=== PATIENT | male | born 1995 | race Caucasian/White ===

== ENCOUNTER 2018-06-15 09:34 | Emergency (ER) | payer OTHER ==
[2018-06-15] MEDS ORDERED: ONDANSETRON 4 MG/2 ML VIAL ONE ×2 (10:10→10:55)
[2018-06-15] MEDS ORDERED: NA CHLORIDE 0.9% 500 ML ONE (10:10)
[2018-06-15] MEDS ORDERED: MORPHINE 4 MG/ML SYR ONE (10:10)
[2018-06-15 10:25] LABS: Absolute Lymphocytes (CBC) 2.9 K/uL (0.7-4.9); Absolute Monocytes 0.5 K/uL (0.1-1.3); Absolute Neutrophil 4.2 K/uL (1.8-8.0); Basophils % 1.1 % (0-1.3); Eosinophils % 4.4 % (0-4.4); Hematocrit 45.8 % (39.6-49.0); Lymphocytes % 35.4 % (15.3-44.8); MCH 29.8 pg (27.0-35.0); MCV 84.5 fL (80-100); MPV 7.5 fL (7.6-11.3); Monocytes % 6.4 % (3.3-12.3); RBC Red Blood Cell Count 5.42 M/uL (4.33-5.43)
[2018-06-15 10:39] LABS: Potassium 3.5 mmol/L (3.5-5.1)
--- NOTE | 2018-06-15 10:49 | RAD REPORT ---
EXAM DESCRIPTION: CT - Stone Protocol - 06/15/2018 10:21 am CLINICAL HISTORY: Abdominal pain. Left flank pain COMPARISON: None. TECHNIQUE: Computed axial tomography of the abdomen pelvis was obtained without oral or IV contrast. Lack of IV and oral contrast limits evaluation of solid organs, bowel, and vessels. Coronal reformat andrzej images were obtained and reviewed. All CT scans are performed using dose optimization technique as appropriate and may include automated exposure control or mA/KV adjustment according to patient size. FINDINGS: 2 tiny nonobstructing right renal calculi are present. A left renal calculus is not seen. Mild left hydronephrosis is present. A 2 millimeter calculus is present within the distal left ureter . The liver, spleen, pancreas and adrenals appear grossly normal There is no evidence of diverticulitis. The appendix appears normal IMPRESSION: 2 millimeter calculus distal left ureter resulting in mild left hydronephrosis
[2018-06-15] MEDS ORDERED: KETOROLAC 30 MG/ML INJ ONE (11:01)
--- NOTE | 2018-06-15 11:50 | EDPHYS ---
Physician Documentation [facility] Name: Toño Vaughan Age: 22 yrs Sex: Male : 1995 Arrival Date: 06/15/2018 Time: 09:37 Bed 16 Private MD: ED Physician Eliseo Saywer HPI: 06/15 11:44 This 22 yrs old Male presents to ER via Ambulatory with complaints of kdr Abdominal Pain. 11:45 The patient presents with abdominal pain in the left lower quadrant. Onset: The kdr symptoms/episode began/occurred this morning. The symptoms radiate to the left flank, left testicle. Associated signs and symptoms: Pertinent positives: nausea and vomiting, testicular pain, Pertinent negatives: diarrhea, dysuria, fever, headache, hematuria, palpitations, shortness of breath. The symptoms are described as achy, constant, steady. Modifying factors: The symptoms are alleviated by nothing, the symptoms are aggravated by movement. Severity of pain: At its worst the pain was severe incapacitating just prior to arrival, in the emergency department the pain is unchanged. The patient has experienced a previous episode, last week, but today's symptoms are worse. The patient has not recently seen a physician. Historical: - Allergies: 09:48 IV contrast; sg - PMHx: 09:48 None; sg - PSHx: 09:48 Mass removed from thyroid; sg - Immunization history:: Adult Immunizations up to date. - Social history:: Smoking status: Patient/guardian denies using tobacco. - Ebola Screening: : Patient negative for fever greater than or equal to 101.5 degrees Fahrenheit, and additional compatible Ebola Virus Disease symptoms Patient denies exposure to infectious person Patient denies travel to an Ebola-affected area in the 21 days before illness onset No symptoms or risks identified at this time. ROS: 11:45 Constitutional: Negative for fever, chills, and weight loss, Eyes: Negative for injury, kdr pain, redness, and discharge, Neck: Negative for injury, pain, and swelling, Cardiovascular: Negative for chest pain, palpitations, and edema, Respiratory: Negative for shortness of breath, cough, wheezing, and pleuritic chest pain, Back: Negative for injury and pain, : Negative for injury, bleeding, discharge, and swelling, MS/Extremity: Negative for injury and deformity, Skin: Negative for injury, rash, and discoloration, Neuro: Negative for headache, weakness, numbness, tingling, and seizure activity. Psych: Negative for depression, anxiety, suicide ideation, homicidal ideation, and hallucinations, Allergy/Immunology: Negative for hives, rash, and allergies, Endocrine: Negative for neck swelling, polydipsia, polyuria, polyphagia, and marked weight changes, Hematologic/Lymphatic: Negative for swollen nodes, abnormal bleeding, and unusual bruising. 11:45 Abdomen/GI: Positive for abdominal pain, Negative for diarrhea, constipation, abdominal cramps, abdominal distension. Exam: 11:45 Constitutional: This is a well developed, well nourished patient who is awake, alert, kdr and in no acute distress. Head/Face: Normocephalic, atraumatic. Eyes: Pupils equal round and reactive to light, extra-ocular motions intact. Lids and lashes normal. Conjunctiva and sclera are non-icteric and not injected. Cornea within normal limits. Periorbital areas with no swelling, redness, or edema. Neck: Trachea midline, no thyromegaly or masses palpated, and no cervical lymphadenopathy. Supple, full range of motion without nuchal rigidity, or vertebral point tenderness. No Meningismus. Chest/axilla: Normal chest wall appearance and motion. Nontender with no deformity. No lesions are appreciated. Cardiovascular: Regular rate and rhythm with a normal S1 and S2. No gallops, murmurs, or rubs. Normal PMI, no JVD. No pulse deficits. Respiratory: Lungs have equal breath sounds bilaterally, clear to auscultation and percussion. No rales, rhonchi or wheezes noted. No increased work of breathing, no retractions or nasal flaring. Back: No spinal tenderness. No costovertebral tenderness. Full range of motion. Skin: Warm, dry with normal turgor. Normal color with no rashes, no lesions, and no evidence of cellulitis. MS/ Extremity: Pulses equal, no cyanosis. Neurovascular intact. Full, normal range of motion. Neuro: Awake and alert, GCS 15, oriented to person, place, time, and situation. Cranial nerves II-XII grossly intact. Motor strength 5/5 in all extremities. Sensory grossly intact. Cerebellar exam normal. Normal gait. Psych: Awake, alert, with orientation to person, place and time. Behavior, mood, and affect are within normal limits. 11:45 Abdomen/GI: Inspection: abdomen appears normal, Bowel sounds: normal, Palpation: soft, mild abdominal tenderness, in the left lower quadrant. Vital Signs: 09:46 BP 147 / 85; Pulse 81; Resp 17 S; Pulse Ox 100% on R/A; Pain 10/10; sg 11:06 BP 143 / 77; Pulse 72; Resp 16; Pulse Ox 97% on R/A; Pain 6/10; ph 12:16 BP 141 / 62; Pulse 71; Resp 18; Temp 97.9; Pulse Ox 99% on R/A; Pain 0/10; ph MDM: 11:45 Data reviewed: vital signs, nurses notes, lab test result(s), radiologic studies. kdr Counseling: I had a detailed discussion with the patient and/or guardian regarding: the historical points, exam findings, and any diagnostic results supporting the discharge/admit diagnosis, lab results, radiology results, the need for outpatient follow up. Special discussion: Based on the patient's Hx, exam, and Dx evaluation, there is no indication for emergent surgery or inpatient Tx. It is understood by the patient/guardian that if the Sx's persist or worsen they need to return immediately for re-evaluation. I discussed with the patient/guardian in detail that at this point there is no indication for admission to the hospital. It is understood, however, that if the symptoms persist or worsen the patient needs to return immediately for re-evaluation. ED course: Essentially pain free at time of discharge. 11:50 Patient medically screened. kdr 06/15 09:56 Order name: Basic Metabolic Panel; Complete Time: 11:15 kdr 06/15 09:56 Order name: CBC with Diff; Complete Time: 11:15 kdr 06/15 09:56 Order name: Creatinine for Radiology; Complete Time: 11:15 kdr 06/15 09:56 Order name: CT Stone Protocol; Complete Time: 11:15 kdr 06/15 09:56 Order name: IV Saline Lock; Complete Time: 10:01 kdr 06/15 09:56 Order name: Labs collected and sent; Complete Time: 10:01 kdr Administered Medications: 10:13 Drug: NS 0.9% 500 ml Route: IV; Rate: bolus; Site: left antecubital; ph 11:00 Follow up: Response: No adverse reaction; IV Status: Completed infusion ph 10:14 Drug: morphine 4 mg Route: IVP; Site: left antecubital; ph 11:00 Follow up: Response: No adverse reaction; Pain is unchanged, physician notified ph 10:14 Drug: Zofran 4 mg Route: IVP; Site: left antecubital; ph 12:15 Follow up: Response: No adverse reaction; Nausea unchanged ph 11:04 Drug: Zofran 4 mg Route: IVP; Site: left antecubital; ph 12:13 Follow up: Response: No adverse reaction; Nausea is decreased ph 11:04 Drug: TORadol 30 mg Route: IVP; Site: left antecubital; ph 12:12 Follow up: Response: No adverse reaction ph 12:13 Follow up: Response: Pain is decreased ph Disposition: 06/15/18 11:50 Discharged to Home. Impression: Left 2 mm kidney stone with mild left hydropnephrosis. - Condition is Stable. - Discharge Instructions: Kidney Stones, [id number]. - Prescriptions for Tylenol- Codeine #3 300-30 mg Oral Tablet - take 2 tablets by ORAL route every 6 hours As needed; 12 tablet. Zofran 4 mg Oral Tablet - take 1 tablet by ORAL route every 12 hours As needed; 10 tablet. Flomax 0.4 mg Oral Capsule, Sust. Release 24 hr - take 1 capsule by ORAL route once daily 1/2 hour following the same meal each day; 10 capsule. Bactrim DS 800- 160 mg Oral Tablet - take 1 tablet by ORAL route every 12 hours for 3 days; 6 tablet. - Medication Reconciliation Form, Thank You Letter, Antibiotic Education, Prescription Opioid Use form. - Follow up: Private Physician; When: 2 - 3 days; Reason: If symptoms return, Further diagnostic work-up, Recheck today's complaints, Continuance of care, Re-evaluation by your physician. - Problem is new. - Symptoms have improved. Signatures: Dispatcher [employer] EDMS Jp Fleming RN RN sg Eliseo Sawyer MD MD [facility] Fide Cristobal RN RN ph Corrections: (The following items were deleted from the chart) 12:18 11:50 06/15/2018 11:50 Discharged to Home. Impression: Left 2 mm kidney stone with mild ph left hydropnephrosis. Condition is Stable. Discharge Instructions: Kidney Stones, [id number]. Prescriptions for Tylenol-Codeine #3 300-30 mg Oral Tablet - take 2 tablets by ORAL route every 6 hours As needed; 12 tablet, Zofran 4 mg Oral Tablet - take 1 tablet by ORAL route every 12 hours As needed; 10 tablet, Flomax 0.4 mg Oral Capsule, Sust. Release 24 hr - take 1 capsule by ORAL route once daily 1/2 hour following the same meal each day; 10 capsule, Bactrim DS 800-160 mg Oral Tablet - take 1 tablet by ORAL route every 12 hours for 3 days; 6 tablet. and Forms are Medication Reconciliation Form, Thank You Letter, Antibiotic Education, Prescription Opioid Use. Follow up: Private Physician; When: 2 - 3 days; Reason: If symptoms return, Further diagnostic work-up, Recheck today's complaints, Continuance of care, Re-evaluation by your physician. Problem is new. Symptoms have improved. kdr
--- NOTE | 2018-06-15 11:50 | ER ---
Nurse's Notes [facility] Name: Toño Vaughan Age: 22 yrs Sex: Male : 1995 Arrival Date: 06/15/2018 Time: 09:37 Bed 16 Private MD: Diagnosis: Left 2 mm kidney stone with mild left hydropnephrosis Presentation: 06/15 09:45 Presenting complaint: Patient states: Left sided flank pain, that began several days sg ago. Had improved but is now back this morning, reports vomiting and nausea, denies fever/diarrhea, reports familiy hx of kidney stones. Transition of care: patient was not received from another setting of care. Onset of symptoms was June 15, 2018. Risk Assessment: Do you want to hurt yourself or someone else? Patient reports no desire to harm self or others. Initial Sepsis Screen: Does the patient meet any 2 criteria? No. Patient's initial sepsis screen is negative. Does the patient have a suspected source of infection? No. Patient's initial sepsis screen is negative. Care prior to arrival: None. 09:45 Method Of Arrival: Ambulatory sg 09:45 Acuity: HAILEY 3 sg Historical: - Allergies: 09:48 IV contrast; sg - PMHx: 09:48 None; sg - PSHx: 09:48 Mass removed from thyroid; sg - Immunization history:: Adult Immunizations up to date. - Social history:: Smoking status: Patient/guardian denies using tobacco. - Ebola Screening: : Patient negative for fever greater than or equal to 101.5 degrees Fahrenheit, and additional compatible Ebola Virus Disease symptoms Patient denies exposure to infectious person Patient denies travel to an Ebola-affected area in the 21 days before illness onset No symptoms or risks identified at this time. Screenin:02 Abuse screen: Denies threats or abuse. Denies injuries from another. Nutritional ph screening: No deficits noted. Tuberculosis screening: No symptoms or risk factors identified. Fall Risk None identified. Assessment: 10:15 General: Appears in no apparent distress. uncomfortable, slender, well groomed, ph Behavior is calm, cooperative, appropriate for age, Denies fever. Pain: Complains of pain in anterior aspect of right lateral abdomen, posterior aspect of right lateral abdomen and left lower quadrant Pain currently is 10 out of 10 on a pain scale. Neuro: Level of Consciousness is awake, alert, obeys commands, Oriented to person, place, time, situation. Respiratory: Airway is patent Respiratory effort is even, unlabored, Respiratory pattern is regular, symmetrical. GI: Abdomen is flat, non-distended, Bowel sounds present X 4 quads. Abd is soft and non tender X 4 quads. Reports lower abdominal pain, nausea, vomiting. : Reports pain in left flank(s), lower quadrant(s) in lower back Denies burning with urination, inability to void. Derm: Skin Skin is pink, warm \T\ dry. Musculoskeletal: Circulation, motion, and sensation intact. Range of motion: intact in all extremities. 10:17 Reassessment: Patient appears in no apparent distress at this time. Patient is alert, ph oriented x 3, equal unlabored respirations, skin warm/dry/pink. Pt taken to CT via wheelchair. 11:05 Reassessment: Patient appears in no apparent distress at this time. Patient and/or ph family updated on plan of care and expected duration. Pain level reassessed. Patient is alert, oriented x 3, equal unlabored respirations, skin warm/dry/pink. Pt continues to c/o nausea and pain 6/10, requesting pain and nausea medication, ERP notified, see MAR. 12:17 Reassessment: Patient appears in no apparent distress at this time. Patient and/or ph family updated on plan of care and expected duration. Pain level reassessed. Patient is alert, oriented x 3, equal unlabored respirations, skin warm/dry/pink. Pt d/c home w/ family Patient states symptoms have improved. Vital Signs: 09:46 BP 147 / 85; Pulse 81; Resp 17 S; Pulse Ox 100% on R/A; Pain 10/10; sg 11:06 BP 143 / 77; Pulse 72; Resp 16; Pulse Ox 97% on R/A; Pain 6/10; ph 12:16 BP 141 / 62; Pulse 71; Resp 18; Temp 97.9; Pulse Ox 99% on R/A; Pain 0/10; ph ED Course: 09:37 Patient arrived in ED. tw3 09:46 Triage completed. sg 09:46 Arm band placed on. sg 09:50 Eliseo Sawyer MD is Attending Physician. kdr 09:54 Inserted saline lock: 20 gauge in left antecubital area, using aseptic technique. Blood ag collected. 10:00 Fide Cristobal, RN is Primary Nurse. ph 10:02 Patient has correct armband on for positive identification. Bed in low position. Call ph light in reach. Side rails up X 1. Pulse ox on. NIBP on. Warm blanket given. 10:21 CT completed. Patient tolerated procedure well. Patient moved to CT. Patient moved back vr from CT. 10:22 CT Stone Protocol In Process Unspecified. EDMS 12:17 No provider procedures requiring assistance completed. IV discontinued, intact, ph bleeding controlled, No redness/swelling at site. Pressure dressing applied. Administered Medications: 10:13 Drug: NS 0.9% 500 ml Route: IV; Rate: bolus; Site: left antecubital; ph 11:00 Follow up: Response: No adverse reaction; IV Status: Completed infusion ph 10:14 Drug: morphine 4 mg Route: IVP; Site: left antecubital; ph 11:00 Follow up: Response: No adverse reaction; Pain is unchanged, physician notified ph 10:14 Drug: Zofran 4 mg Route: IVP; Site: left antecubital; ph 12:15 Follow up: Response: No adverse reaction; Nausea unchanged ph 11:04 Drug: Zofran 4 mg Route: IVP; Site: left antecubital; ph 12:13 Follow up: Response: No adverse reaction; Nausea is decreased ph 11:04 Drug: TORadol 30 mg Route: IVP; Site: left antecubital; ph 12:12 Follow up: Response: No adverse reaction ph 12:13 Follow up: Response: Pain is decreased ph Outcome: 11:50 Discharge ordered by . kdr 12:17 Discharged to home ambulatory, with family. ph 12:17 Condition: improved 12:17 Discharge instructions given to patient, Instructed on discharge instructions, follow up and referral plans. medication usage, Demonstrated understanding of instructions, follow-up care, medications, Prescriptions given X 4. 12:18 Patient left the ED. ph Signatures: Dispatcher [employer] EDJp White, RN JEET Eliseo Sawyer MD MD kdr Davis, Victoria vr Cecil, Asia ag Fide Cristobal RN RN ph Rigo, Lisa tw3
== END 2018-06-15 12:18 | disposition home or self-care (01) ==
LOC: ER 09:34
DX: N13.2 Hydronephrosis with renal and ureteral calculous obstruction (principal); Z91.041 Radiographic dye allergy status
CPT/HCPCS: 36415; 74176; 76377; 80048; 85025; 96361; 96374; 96375; 99284; J2405